=== PATIENT | female | born 1985 | race Caucasian/White ===

== ENCOUNTER 2020-11-27 20:25 | Emergency (ER) | payer MEDICAID ==
[2020-11-27] MEDS ORDERED: RABIES VACCINE 2.5 UNIT SYRINGE IM ONE (20:49)
[2020-11-27] MEDS ORDERED: RABIES IMMUNE GLOBULIN 300 UNITS/2 ML IM STA (20:49)
--- NOTE | 2020-11-27 21:06 | ED Physician Documentation ---
PD HPI WOUND RECHECK - Stated complaint Stated Complaint: ANIMAL BITE - Chief complaint Chief Complaint: Wound - Histroy obtained from History obtained from: Patient - Additional information Additional information: Staying in a rental cabin last night, they found a bat in their this morning. No clear bite. No previous rabies immunization. PD PAST MEDICAL HISTORY - Past Medical History Past Medical History: Yes Cardiovascular: Other Other Past Medical History: bardycardia. lyme dz - Past Surgical History Past Surgical History: No - Present Medications Home Medications: Ambulatory Orders Medication Instructions Recorded Confirmed Bupropion HCl [Wellbutrin Xl] 300 mg PO DAILY 11/27/20 11/27/20 Rabies Vaccine [Rabavert] 2.5 unit IM ONCE #3 11/27/20 - Allergies Allergies/Adverse Reactions: Allergies Allergy/AdvReac Type Severity Reaction Status Date / Time egg Allergy Hives Verified 11/27/20 20:35 - Social History Does the pt smoke?: No Smoking Status: Never smoker Does the pt drink ETOH?: No Does the pt have substance abuse?: No - Immunizations Immunizations are current?: No Immunizations: TDAP >10years/unknown - POLST Patient has POLST: No Results - Vitals Vitals: Vital Signs - 24 hr 11/27/20 11/27/20 20:36 20:46 Temperature 37.0 C Heart Rate 73 73 Respiratory 19 19 Rate Blood Pressure 125/90 H 125/90 H O2 Saturation 100 100 Oxygen O2 Source Room air PD MEDICAL DECISION MAKING - ED course ED course: 35-year-old with bat exposure, discussed CDC recommendations and recommended postexposure prophylaxis for rabies and ordered both 20 units/kg of RIG and first rabies vaccine. Patient does not live locally and was given a prescription for subsequent vaccinations but also discussed if unable to find it at a pharmacy they could go to a local ER. Departure - Departure Disposition: 01 Home, Self Care Clinical Impression: Exposure to bat without known bite Condition: Good Instructions: Rabies Prescriptions: Rabies Vaccine [Rabavert] 2.5 unit IM ONCE #3
[2020-11-27 22:01] VITALS: BP 126/82
== END 2020-11-27 22:01 | disposition home or self-care (01) ==
LOC: ED 20:25
DX: Z20.3 Contact with and (suspected) exposure to rabies (principal); Z29.14 Encounter for prophylactic rabies immune globulin
CPT/HCPCS: 90471; 96372; 99281; 99283